=== PATIENT | female | born 1935 | race Caucasian/White ===

== ENCOUNTER → 2021-06-16 | Outpatient (CLI) | payer MEDICARE, OTHER ==
[2018-03-03 11:00] VITALS: BP 122/39
[~2021-06-16] MED LIST: AMLO1CAP9 PO; CARV25TA2 PO; FERR325T14 PO; PRAV40TA2 PO; SENN-22 PO; TRAM50TA PO
[2021-06-16 11:02] LABS: BASO # 0.1 x10^3/uL (0.0-0.2); BASO % 1 % (0-3); EOS # 0.1 x10^3/uL (0.0-0.7); EOS % 1 % (0-3); HEMATOCRIT 41.6 % (36.0-47.0); LYMPH # 0.8 x10^3/uL (1.0-4.8); LYMPH % 11 % (24-48); MEAN CORPUSCULAR HEMOGLOBIN 31 pg (25-35); MEAN CORPUSCULAR HGB CONC 34 g/dL (31-37); MEAN CORPUSCULAR VOLUME 92 fL (79-100); MONO # 0.6 x10^3/uL (0.0-1.1); MONO % 8 % (0-9); NEUT # 5.6 x10^3/uL (1.8-7.7); NEUT % 79 % (31-73); PLATELET COUNT 267 x10^3/uL (140-400); RED CELL DISTRIBUTION WIDTH 12.9 % (11.5-14.5)
[2021-06-16 16:35] LABS: WHITE BLOOD COUNT 7.1 x10^3/uL (4.0-11.0)
[2021-06-17 14:23] LABS: IMMUNOGLOBULIN A 206 mg/dL (64-422); IMMUNOGLOBULIN G 1140 mg/dL (586-1602); IMMUNOGLOBULIN M 62 mg/dL (26-217)
[2021-06-17 15:18] LABS: ALBUM 3.7 g/dL (2.9-4.4); ALPHA 1 0.3 g/dL (0.0-0.4); ALPHA 2 0.9 g/dL (0.4-1.0); GAMMA 1.1 g/dL (0.4-1.8); SPEP AG RATIO 1.1 (0.7-1.7)
[2021-06-17 17:14] LABS: KAPPA FREE 24.4 mg/L (3.3-19.4); KAPPA LAMBDA RATIO 1.24 (0.26-1.65); LAMBDA FREE 19.6 mg/L (5.7-26.3)
== END ==
LOC: ONCLAB 09:51
PROVIDERS: ATTEND Internal Medicine Hematology & Oncology
DX: N18.31 Chronic kidney disease, stage 3a (principal); E83.10 Disorder of iron metabolism, unspecified
CPT/HCPCS: 82525; 82607; 82668; 82728; 82746; 82784; 83010; 83520; 83540; 83550; 84165; 85025; 86334